=== PATIENT | male | born 1955 ===

== ENCOUNTER 2024-12-11 14:41 | Outpatient (REF) | payer MEDICARE, SELFPAY ==
--- OUTSIDE RECORDS SUMMARY | 2024-11-24 05:30 | XMS_ITS ---
Author Organization [facility] Address [address] [place] [address] [address] [place] [address] Care Team Providers Care Paper Handler Name Role Phone KOBE DOELL Unavailable [phone] REASON FOR VISIT CHAYO, Respiratory failure Encounters Encounter Location Date Provider Diagnosis [address] [place], [place] [id number] 11/24/2024 KOBEEvon ODELL Obstructive sleep ap melba (adult) (pediatric) G47.33 and Respiratory failure, unspecified, unspecified whether with hypoxia or hypercapnia J96.90 Assessments Encounter Date Diagnosis (ICD Code) Assessment Notes Treatment Notes Treatment Clinical Notes Section Notes 11/24/2024 Obstructive sleep apnea (adult) (pediatric) (ICD-10 - G47.33) 11/24/2024 Respiratory failure, unspecified, unspecified whether with hypoxia or hypercapnia (ICD-10 - J96.90) Plan Of Treatment Next Appt Details Follow Up: 1 Week, Reason: Progress Notes * Frankie THORNTONDOB:1955 (69 yo M)Acc No.[id number]:11/24/2024 Progress Notes Patient: Frankie MELGOZA Provider: Kale Odell MD :1955 A ge:69 Y S ex:Male Date:11/24/2024 Phone: Address:[facility] [address], [place], [id number] Subjective: * Chief Complaints: * 1 . CHAYO. 2. Respiratory failure. * HPI: C onstitutional: Continuing to see the patient for pulmonary management. Discussed residents pulmonary status with the respiratory therapist. Reviewed current assessment and orders. Will continue current orders as written at this time. Impression: CHAYO Respiratory failure Plan: 2L NC during the day to maintain SpO2 >90% CPAP HS: settings of 17 cmH2O at HS and with naps, bought own machine online, private pay, will continue No nebulizers or inhalers Full code Will continue to monitor pulmonary status. * ROS: A ll Other Systems: Review of Systems (ROS) A ll others negative except those mentioned in HPI,See HPI for details. * Medical History: Objective: * Vitals: * Examination: G eneral Examination: GENERAL APPEARANCE: i n no acute distress, well developed, well nourished. ORAL CAVITY: m ucosa moist. THROAT: n ormal. NECK/THYROID: n jay supple, full range of motion, no cervical lymphadenopathy. SKIN: n o suspicious lesions, warm and dry. HEART: n o murmurs, regular rate and rhythm, S1, S2 normal.? LUNGS: c lear to auscultation bilaterally. EXTREMITIES: n o clubbing, cyanosis, or edema. ? Assessment: * Assessment: 1. O bstructive sleep apnea (adult) (pediatric) - G47.33 (Primary) 2 . R espiratory failure, unspecified, unspecified whether with hypoxia or hypercapnia - J96.90 ? Plan: * Treatment: * Follow Up: 1 Week * * Electronic signature of KOBE ODELL MD on 12/11/2024 at 02:56 PM EDT Sign off status: Pending * Provider: Kale Odell MD Date: 11/24/2024 Generated for Cesar longoria/Richard/Kalensmitting on: 0 12/11/2024 02:56 PM EDT History and Physical Notes * HPI (History of Present Illness) Category Sub-Category Detail Notes Category Not es Constitutional Continuing to see the patient for pulmonary management. Discussed residents pulmonary status with the respiratory therapist. Reviewed current assessment and orders. Will continue current orders as written at this time. Impression: CHAYO Respiratory failure Plan: 2L NC during the day to maintain SpO2 >90% CPAP HS: settings of 17 cmH2O at HS and with naps, bought own machine online, private pay, will continue No nebulizers or inhalers Full code Will continue to monitor pulmonary status Examination Category Sub-Category Detail Notes Category Not es General Examination GENERAL APPEARANCE: in no ac reema distress, well developed, well nourished THROAT: normal NECK/THYROID: neck supple, full ra nge of motion, no cervical lymphadenopathy HEART: no murmurs, regular rate and rhythm, S1, S2 normal LUNGS: clear to auscultatio n bilaterally SKIN: no suspicious lesion s, warm and dry EXTREMITIES: no clubbing, cyanosi s, or edema ORAL CAVITY: mucosa moist
--- OUTSIDE RECORDS SUMMARY | 2024-12-08 05:30 | XMS_ITS ---
Author Organization [facility] Address [address] [place] [address] [address] [place] [address] Care Team Providers Care Banking Supervisor Name Role Phone KOBE ODELL Unavailable [phone] REASON FOR VISIT CHAYO, Respiratory failure Encounters Encounter Location Date Provider Diagnosis [address] [place], [place] [phone] 12/08/2024 KOBE JOSE R Obstructive sleep ap melba (adult) (pediatric) G47.33 and Respiratory failure, unspecified, unspecified whether with hypoxia or hypercapnia J96.90 Assessments Encounter Date Diagnosis (ICD Code) Assessment Notes Treatment Notes Treatment Clinical Notes Section Notes 12/08/2024 Obstructive sleep apnea (adult) (pediatric) (ICD-10 - G47.33) 12/08/2024 Respiratory failure, unspecified, unspecified whether with hypoxia or hypercapnia (ICD-10 - J96.90) Plan Of Treatment Next Appt Details Follow Up: 1 Week, Reason: Progress Notes * Frankie THORNTONDOB:1955 (69 yo M)Acc No.[id number]:12/08/2024 Progress Notes Patient: Frankie MELGOZA Provider: Kale Odell MD :1955 A ge:69 Y S ex:Male Date:12/08/2024 Phone: Address:[facility] [address], [place], [id number] Subjective: * Chief Complaints: * O SARespiratory failure * HPI: C onstitutional: Continuing to see the patient for pulmonary management. Evaluated patient at bedside with RT. Stable pulmonary status. No changes in physical examination. Discussed pulmonary status with nursing and RT. Continue current orders. Impression: CHAYO Respiratory failure Plan: 2L NC [...] HPI,See HPI for details. * Medical History: * Surgical History: * Hospitalization/Major Diagno stic Procedure: * Medications: Objective: * Vitals: * Examination: G eneral [...] - J96.90 ? Plan: * Treatment: * Procedure Codes: * Follow Up: 1 Week * * Sign off status: Completed true * Provider: Kale Odell MD Date: 12/08/2024 Generated for Ellioterento von/Richard/eTransmitting on: 0 12/11/2024 02:56 PM EDT History and Physical Notes * HPI (History of Present Illness) Category Sub-Category Detail Notes Category Not es Constitutional Continuing to see the patient for pulmonary management. Evaluated patient at bedside with RT. Stable pulmonary status. No changes in physical examination. Discussed pulmonary status with nursing and RT. Continue current orders. Impression: CHAYO Respiratory failure Plan: 2L NC during the day to maintain SpO2 >90% CPAP HS: settings of 17 cmH2O at HS and with naps, bought own machine online, private pay, will continue No nebulizers or inhalers Full code Will continue to monitor pulmonary status Examination Category Sub-Category Detail Notes Category Not es General Examination GENERAL APPEARANCE: in no ac jackson distress, well developed, well nourished THROAT: normal NECK/THYROID: neck supple, full ra nge of motion, no cervical lymphadenopathy HEART: no murmurs, regular rate and rhythm, S1, S2 normal LUNGS: clear to auscultatio n bilaterally SKIN: no suspicious lesion s, warm and dry EXTREMITIES: no clubbing, cyanosi s, or edema ORAL CAVITY: mucosa moist
--- OUTSIDE RECORDS SUMMARY | 2024-12-11 10:15 | XMS_ITS ---
Author Organization [facility] [place] Address [address] [place] [address] Care Team Providers Care Ocular Care Technician Name Role Phone Bouts Ousmane UGARTE Primary Care Provider Rui Christina Unavailable [phone] Encounters Encounter Location Date Provider Diagnosis [facility] [address] [place] [address] 12/11/2024 Rui Paniagua Plan Of Treatment No Information Progress Notes * Frankie THORNTON HDOB:[birth year] (69 yo M)Acc No.[id number]:12/11/2024 Patient: Frankie MELGOZA :1955 A ge:69 Y S ex:Male Address:[address], [address], [place], [address] * true * Date: Generated for Ellioti von/Faloretag/eTransmitting on: 0 12/11/2024 02:56 PM EDT
--- OUTSIDE RECORDS SUMMARY | 2024-12-11 14:56 | XMS_ITS | Encounter Summary ---
Author Organization [facility] Address [address] [facility] [place] [address] Care Team Providers Care Sql Manager Name Role Phone Unavailable Primary Care Provider Unavailabl e Encounter Details Date Type Department Care Team (Late st Contact Info) Description 12/02/2024 Telephone [facility] [address] [place] [id number] Puja Lacey, MEDICAL POLICY SPECIALIST [address] [place] [address] Social History Tobacco Use Types Packs/Day Years Used Date Smoking Tobacco: Never Assessed Sex and Gender Information Value Date Recorded Sex Assigned at Not on file Legal Sex Male 10:25 AM EDT Gender Identity Not on file Sexual Orientation Not on file documented as of this encounter Miscellaneous Notes * Telephone Encounter - Puja Lacey NP - 12/02/2024 10:55 PM EDT Requested Prescriptions Signed Prescriptions Disp Refills oxyCODONE (Roxicodone) 5 MG immediate release tablet 60 tablet 0 Sig: Take 1 tablet (5 mg) by mouth every 12 (twelve) hours Authorizing Provider: PUJA LACEY documented in this encounter Plan of Treatment Not on file documented as of this encounter Visit Diagnoses Diagnosis Pain- Primary Generalized pain documented in this encounter
--- OUTSIDE RECORDS SUMMARY | 2024-12-11 14:56 | XMS_ITS | Patient Health Record ---
Author Organization [facility] [place] Address [address] [place] [address] Care Team Providers Care Food Safety Officer Name Role Phone Bouts Ousmane UGARTE Primary Care Provider Rui Christina Unavailable [phone] Results Component Value Reference Range Notes IR Tunneled Dialysis Cathete r Insert Reviewed date:11/06/2024 01:40:36 PM Interpretation: Performing Lab: Notes/Report: Patient Name: Frankie Thornton CLINICAL HISTORY: Needs long-term dialysis access. Ig Free Light Chains-Given Reviewed date:11/11/2024 01:50:49 PM Interpretation: Performing Lab: Notes/Report: [facility] [address] [place], [place] [address] Belk FLC-Given 11.8 0.3300-1.94 mg/dL Lambda FLC-Given 8.74 0.5700-2.63 mg/dL Flakita/Mohan Ratio-Given 1.35 0.2600-1.65 Test Performed by: [facility] [address] [place] [address] Console Operator: Angela Higginbotham Ph.D.; CLIA# [id number] MAGNESIUM Reviewed date:11/11/2024 04:25:31 PM Interpretation: Performing Lab: Notes/Report: [facility] [address] [place] [address] Magnesium Lvl 2.0 1.7-2.4 mg/dL PHOSPHORUS Reviewed date:11/11/2024 04:25:12 PM Interpretation: Performing Lab: Notes/Report: [facility] [address] [place] [address] Phosphorus 3.5 2.5-4.6 mg/dL UPCR Reviewed date:11/11/2024 04:19:58 PM Interpretation: Performing Lab: Notes/Report: [address] [address] Urine Protein/Creatinine Ratio 2.08 <=0.20 Ur Creatinine 78.50 The reference range has not been established for this test on a random urine sample. The test result should be interpreted based on clinical context. Ur Protein 163 <=10 mg/dL Uric Acid Reviewed date:11/11/2024 04:25:26 PM Interpretation: Performing Lab: Notes/Report: [address] [address] Uric Acid 4.8 4.0-7.6 mg/dL PTH-INT Reviewed date:11/11/2024 04:25:22 PM Interpretation: Performing Lab: Notes/Report: [address] [address] PTH Intact 98.2 12.0-88.0 pg/mL Vitamin D 25-Hydroxy Total Reviewed date:11/11/2024 04:25:16 PM Interpretation: Performing Lab: Notes/Report: [address] [address] Vitamin D 25-Hydroxy Total 37 30-100 ng/mL Vitamin D 25-Hydroxy Total Reference Range: Deficient: < 20 ng/mL Insufficient: 20 - 29 ng/mL Sufficient: 30 - 100 ng/mL Upper Safety Limit: > 100 ng/mL TIBC Reviewed date:11/11/2024 04:25:07 PM Interpretation: Performing Lab: Notes/Report: [address] [address] Iron Sat 16.2 >=16.0 % TIBC 185 261-478 mcg/dL Transferrin 132.0 203.0-362.0 mg/dL Iron 30 50-212 mcg/dL B12/Folate Lvl Reviewed date:11/11/2024 04:22:38 PM Interpretation: Performing Lab: Notes/Report: [address] [address] Folate Lvl 21.5 >=5.9 ng/mL A WHO Technical Consultation has determined that deficient Folate concentrations are considered to be less than 4 ng/mL. Vitamin B12 Lvl 797 180-914 pg/mL MAGNESIUM Reviewed date:11/12/2024 11:22:02 AM Interpretation: Performing Lab: Notes/Report: [address] [address] Magnesium Lvl 2.0 1.7-2.4 mg/dL .eGFR Reviewed date:11/12/2024 08:04:42 AM Interpretation: Performing Lab: Notes/Report: Order added by Discern rule [address] [address] Estimated GFR 19 >=60 mL/min/1.73m? [facility] have implemented the eGFR calculation approach that does not have a coefficient for race and that conforms to the NKF-ASN Task Force Recommendations. Stages of Chronic Kidney Disease GFR Stage 1 Normal to mild loss of kidney function ? 90 Stage 2 Mild loss of kidney function 60 - 89 Stage 3a Mild to moderate loss of kidney function 45 - 59 Stage 3b Moderate to severe loss of kidney function 30 - 45 Stage 4 Severe loss of kidney function 15 - 29 Stage 5 Kidney failure < 15 GFR calculated using the CKD-Epi Creatinine Equation (2020): eGFR = 142 X min(SCr/?, 1)? X max(SCr /?, 1)-1.200 X 0.9938Age X 1.012 [if female] Abbreviations/Units: eGFR (estimated glomerular filtration rate) = mL/min/1.73 m2 SCr (standardized serum creatinine) = mg/dL ? = 0.7 (females) or 0.9 (males) ? = -0.241 (females) or -0.302 (males) min = indicates the minimum of SCr/? or 1 max = indicates the maximum of SCr/? or 1 Age = years ALT Reviewed date:11/12/2024 11:22:08 AM Interpretation: Performing Lab: Notes/Report: [address] [address] ALT 5 7-52 IU/L AST Reviewed date:2024 11:22:05 AM Interpretation: Performing Lab: Notes/Report: [address] [address] AST 28 13-39 IU/L Total Protein Reviewed date:11/12/2024 11:21:59 AM Interpretation: Performing Lab: Notes/Report: [address] [address] Total Protein 6.4 6.0-8.3 g/dL Alk Phos Reviewed date:11/12/2024 11:21:57 AM Interpretation: Performing Lab: Notes/Report: [address] [address] Alk Phos 131 34-104 IU/L Renal Panel Reviewed date:11/12/2024 11:21:53 AM Interpretation: Performing Lab: Notes/Report: [address] [address] Sodium Lvl 133 136-145 mmol/L Potassium Lvl 3.7 3.4-4.8 mmol/L Chloride 100 98-107 mmol/L CO2 25 21-31 mmol/L Anion Gap 8 4-12 mmol/L Glucose Lvl 133 70-99 mg/dL BUN 31 7-25 mg/dL Creatinine Lvl 3.30 0.70-1.30 mg/dL BUN Crea Ratio 9.4 15.0-25.0 ratio Albumin Lvl 2.9 4.2-5.5 g/dL Calcium Lvl 9.1 8.6-10.3 mg/dL Phosphorus 2.9 2.5-4.6 mg/dL Full Bilirubin Reviewed date:11/12/2024 11:21:55 AM Interpretation: Performing Lab: Notes/Report: [address] [address] Bili Total 0.9 0.3-1.0 mg/dL Bili Direct 0.20 0.03-0.18 mg/dL Bili Indirect 0.7 0.0-1.0 mg/dL MAGNESIUM Reviewed date:11/13/2024 08:01:34 AM Interpretation: Performing Lab: Notes/Report: [address] [address] Magnesium Lvl 1.9 1.7-2.4 mg/dL PHOSPHORUS Reviewed date:11/13/2024 08:01:31 AM Interpretation: Performing Lab: Notes/Report: [address] [address] Phosphorus 3.2 2.5-4.6 mg/dL MAGNESIUM Reviewed date:11/14/2024 08:04:38 AM Interpretation: Performing Lab: Notes/Report: [address] [place] [address] Magnesium Lvl 1.9 1.7-2.4 mg/dL PHOSPHORUS Reviewed date:11/14/2024 08:04:30 AM Interpretation: Performing Lab: Notes/Report: [address] [address] Phosphorus 2.6 2.5-4.6 mg/dL CBC Reviewed date:11/15/2024 08:17:15 AM Interpretation: Performing Lab: Notes/Report: [address] [address] WBC 7.0 4.5-11.0 x10*3/mcL RBC 3.12 4.30-5.80 x10*6/mcL Hgb 9.7 13.5-17.5 g/dL Hct 29.0 41.0-53.0 % MCV 92.9 80.0-100.0 fL MCH 31.1 27.0-35.0 pg MCHC 33.5 31.0-37.0 % Platelet 253 150-450 x10*3/mcL RDW 21.2 11.6-14.8 % Mean Platelet Volume 7.9 6.7-10.6 fL Diff Auto Reviewed date:11/18/2024 09:25:42 AM Interpretation: Performing Lab: Notes/Report: [address] [address] Neutro Auto 71.8 47.2-70.8 % Lymph Auto 13.4 27.2-40.8 % Bay Auto 10.2 4.7-13.9 % Eos Auto 2.5 0.0-6.1 % Basophil Auto 2.1 0.0-1.2 % Neutro Absolute 5.2 1.8-7.7 x10*3/mcL Lymph Absolute 1.0 1.0-4.8 x10*3/mcL Bay Absolute 0.7 0.3-1.1 x10*3/mcL Eos Absolute 0.2 0.0-0.4 x10*3/mcL Baso Absolute 0.2 0.0-0.2 x10*3/mcL CMP Reviewed date:11/18/2024 09:25:35 AM Interpretation: Performing Lab: Notes/Report: [address] [address] Sodium Lvl 133 136-145 mmol/L Potassium Lvl 3.7 3.4-4.8 mmol/L Chloride 101 98-107 mmol/L CO2 26 21-31 mmol/L Anion Gap 6 4-12 mmol/L Glucose Lvl 141 70-99 mg/dL BUN 27 7-25 mg/dL Creatinine Lvl 2.66 0.70-1.30 mg/dL BUN Crea Ratio 10.2 15.0-25.0 ratio Bili Total 0.8 0.3-1.0 mg/dL Alk Phos 133 34-104 IU/L AST 16 13-39 IU/L ALT 6 7-52 IU/L Total Protein 6.6 6.0-8.3 g/dL Albumin Lvl 3.4 4.2-5.5 g/dL AG Ratio 1.1 1.1-2.2 Calcium Lvl 9.5 8.6-10.3 mg/dL .eGFR Reviewed date:11/18/2024 09:25:23 AM Interpretation: Performing Lab: Notes/Report: [facility] [address] [place] [address] Estimated GFR 25 >=60 mL/min/1.73m? [facility] have implemented the eGFR calculation approach that does not have a coefficient for race and that conforms to the NKF-ASN Task Force Recommendations. Stages of Chronic Kidney Disease GFR Stage 1 Normal to mild loss of kidney function ? 90 Stage 2 Mild loss of kidney function 60 - 89 Stage 3a Mild to moderate loss of kidney function 45 - 59 Stage 3b Moderate to severe loss of kidney function 30 - 45 Stage 4 Severe loss of kidney function 15 - 29 Stage 5 Kidney failure < 15 GFR calculated using the CKD-Epi Creatinine Equation (2020): eGFR = 142 X min(SCr/?, 1)? X max(SCr /?, 1)-1.200 X 0.9938Age X 1.012 [if female] Abbreviations/Units: eGFR (estimated glomerular filtration rate) = mL/min/1.73 m2 SCr (standardized serum creatinine) = mg/dL ? = 0.7 (females) or 0.9 (males) ? = -0.241 (females) or -0.302 (males) min = indicates the minimum of SCr/? or 1 max = indicates the maximum of SCr/? or 1 Age = years PHOSPHORUS Reviewed date:11/18/2024 09:25:26 AM Interpretation: Performing Lab: Notes/Report: [address] [address] Phosphorus 2.4 2.5-4.6 mg/dL MAGNESIUM Reviewed date:11/18/2024 09:25:31 AM Interpretation: Performing Lab: Notes/Report: [address] [address] Magnesium Lvl 2.0 1.7-2.4 mg/dL CBC NO DIFF Reviewed date:11/18/2024 09:25:39 AM Interpretation: Performing Lab: Notes/Report: [address] [address] WBC 7.2 4.5-11.0 x10*3/mcL RBC 3.08 4.30-5.80 x10*6/mcL Hgb 9.5 13.5-17.5 g/dL Hct 28.8 41.0-53.0 % MCV 93.4 80.0-100.0 fL MCH 30.9 27.0-35.0 pg MCHC 33.1 31.0-37.0 % Platelet 254 150-450 x10*3/mcL RDW 21.3 11.6-14.8 % Mean Platelet Volume 7.9 6.7-10.6 fL CMP Reviewed date:11/15/2024 08:17:11 AM Interpretation: Performing Lab: Notes/Report: [address] [address] Sodium Lvl 133 136-145 mmol/L Potassium Lvl 3.9 3.4-4.8 mmol/L Chloride 101 98-107 mmol/L CO2 25 21-31 mmol/L Anion Gap 7 4-12 mmol/L Glucose Lvl 128 70-99 mg/dL BUN 36 7-25 mg/dL Creatinine Lvl 3.24 0.70-1.30 mg/dL BUN Crea Ratio 11.1 15.0-25.0 ratio Bili Total 0.8 0.3-1.0 mg/dL Alk Phos 135 34-104 IU/L AST 20 13-39 IU/L ALT 6 7-52 IU/L Total Protein 6.2 6.0-8.3 g/dL Albumin Lvl 2.9 4.2-5.5 g/dL AG Ratio 0.9 1.1-2.2 Calcium Lvl 9.5 8.6-10.3 mg/dL .eGFR Reviewed date:11/15/2024 08:16:59 AM Interpretation: Performing Lab: Notes/Report: [address] [address] Estimated GFR 20 >=60 mL/min/1.73m? [facility] have implemented the eGFR calculation approach that does not have a coefficient for race and that conforms to the NKF-ASN Task Force Recommendations. Stages of Chronic Kidney Disease GFR Stage 1 Normal to mild loss of kidney function ? 90 Stage 2 Mild loss of kidney function 60 - 89 Stage 3a Mild to moderate loss of kidney function 45 - 59 Stage 3b Moderate to severe loss of kidney function 30 - 45 Stage 4 Severe loss of kidney function 15 - 29 Stage 5 Kidney failure < 15 GFR calculated using the CKD-Epi Creatinine Equation (2020): eGFR = 142 X min(SCr/?, 1)? X max(SCr /?, 1)-1.200 X 0.9938Age X 1.012 [if female] Abbreviations/Units: eGFR (estimated glomerular filtration rate) = mL/min/1.73 m2 SCr (standardized serum creatinine) = mg/dL ? = 0.7 (females) or 0.9 (males) ? = -0.241 (females) or -0.302 (males) min = indicates the minimum of SCr/? or 1 max = indicates the maximum of SCr/? or 1 Age = years PHOSPHORUS Reviewed date:11/15/2024 08:17:02 AM Interpretation: Performing Lab: Notes/Report: [address] [address] Phosphorus 3.1 2.5-4.6 mg/dL MAGNESIUM Reviewed date:11/15/2024 08:17:06 AM Interpretation: Performing Lab: Notes/Report: [address] [address] Magnesium Lvl 2.0 1.7-2.4 mg/dL UPEP Reviewed date:11/06/2024 01:42:05 PM Interpretation: Performing Lab: Notes/Report: [address] [address] Ur Protein 233 <=10 mg/dL Urine SPE Albumin % 56.1 Urine SPE Globulin % 43.9 Urine SPE Pathologist Interpretation Urine protein electrophoresis shows: Albuminuria and some other proteins, including one protein restriction that is suggestive for monoclonal protein.. Authenticated by: Radha Syed M.D. Date/Time:11/05/2024 16:24:24 EDT Diff Auto Reviewed date:11/18/2024 09:24:33 AM Interpretation: Performing Lab: Notes/Report: [address] [address] Neutro Auto 72.4 47.2-70.8 % Lymph Auto 13.2 27.2-40.8 % Bay Auto 10.4 4.7-13.9 % Eos Auto 2.9 0.0-6.1 % Basophil Auto 1.1 0.0-1.2 % Neutro Absolute 5.3 1.8-7.7 x10*3/mcL Lymph Absolute 1.0 1.0-4.8 x10*3/mcL Bay Absolute 0.8 0.3-1.1 x10*3/mcL Eos Absolute 0.2 0.0-0.4 x10*3/mcL Baso Absolute 0.1 0.0-0.2 x10*3/mcL CBC NO DIFF Reviewed date:11/18/2024 09:24:29 AM Interpretation: Performing Lab: Notes/Report: [address] [address] WBC 7.3 4.5-11.0 x10*3/mcL RBC 3.11 4.30-5.80 x10*6/mcL Hgb 9.7 13.5-17.5 g/dL Hct 29.0 41.0-53.0 % MCV 93.2 80.0-100.0 fL MCH 31.2 27.0-35.0 pg MCHC 33.5 31.0-37.0 % Platelet 253 150-450 x10*3/mcL RDW 21.2 11.6-14.8 % Mean Platelet Volume 8.1 6.7-10.6 fL Renal Panel Reviewed date:11/18/2024 09:24:22 AM Interpretation: Performing Lab: Notes/Report: [address] [address] Sodium Lvl 133 136-145 mmol/L Potassium Lvl 4.2 3.4-4.8 mmol/L Chloride 100 98-107 mmol/L CO2 26 21-31 mmol/L Anion Gap 7 4-12 mmol/L Glucose Lvl 118 70-99 mg/dL BUN 34 7-25 mg/dL Creatinine Lvl 3.34 0.70-1.30 mg/dL BUN Crea Ratio 10.2 15.0-25.0 ratio Albumin Lvl 3.1 4.2-5.5 g/dL Calcium Lvl 9.7 8.6-10.3 mg/dL Phosphorus 3.6 2.5-4.6 mg/dL .eGFR Reviewed date:11/18/2024 09:24:19 AM Interpretation: Performing Lab: Notes/Report: [address] [address] Estimated GFR 19 >=60 mL/min/1.73m? [facility] have implemented the eGFR calculation approach that does not have a coefficient for race and that conforms to the NKF-ASN Task Force Recommendations. Stages of Chronic Kidney Disease GFR Stage 1 Normal to mild loss of kidney function ? 90 Stage 2 Mild loss of kidney function 60 - 89 Stage 3a Mild to moderate loss of kidney function 45 - 59 Stage 3b Moderate to severe loss of kidney function 30 - 45 Stage 4 Severe loss of kidney function 15 - 29 Stage 5 Kidney failure < 15 GFR calculated using the CKD-Epi Creatinine Equation (2020): eGFR = 142 X min(SCr/?, 1)? X max(SCr /?, 1)-1.200 X 0.9938Age X 1.012 [if female] Abbreviations/Units: eGFR (estimated glomerular filtration rate) = mL/min/1.73 m2 SCr (standardized serum creatinine) = mg/dL ? = 0.7 (females) or 0.9 (males) ? = -0.241 (females) or -0.302 (males) min = indicates the minimum of SCr/? or 1 max = indicates the maximum of SCr/? or 1 Age = years MAGNESIUM Reviewed date:11/18/2024 09:24:25 AM Interpretation: Performing Lab: Notes/Report: [address] [address] Magnesium Lvl 2.0 1.7-2.4 mg/dL Reason For Referral No Information Problems Problem Type SNOMED Code ICD Code Onset Dates Problem Status W/U Status Risk Notes Problem Hepatorenal syndrome (70896215) Hepatorenal syndrome (K76.7) Active confirmed Problem single functional kidney (finding) (044987837) Solitary kidney (Q60.0) Active confirmed Problem ACC/AHA stage C systolic heart failure (I50.20) Active confirmed Encounters Encounter Location Date Provider Diagnosis [facility] [address] [place] [address] 12/11/2024 Rui Paniagua Plan Of Treatment No Information Insurance Providers Payer Name Payer Address Payer Phone Subscriber Number Group Number Insured Name Patient Relationship to Insured Coverage Start Date Coverage End Date [employer] MEDICARE ADVANTAGE [address] [address] [place] [address] [id number] Frankie Thornton Self - patient is the insured 5
--- OUTSIDE RECORDS SUMMARY | 2024-12-11 14:56 | XMS_ITS | Patient Health Record ---
Author Organization [facility] Address [address] [facility] [address] [place] [address] Care Team Providers Care Court Of Appeals Judge Name Role Phone KOBE ODELL Unavailable [phone] PRINCE MARINA Unavailable [phone] GATO GURMEET Unavailable [phone] Reason For Referral No Information Problems Problem Type SNOMED Code ICD Code Onset Dates Problem Status W/U Status Risk Notes Problem Obstructive sleep apnea syndrome (disorder) (66057530) Obstructive sleep apnea (adult) (pediatric) (G47.33) Active confirmed Encounters Encounter Location Date Provider Diagnosis [place] [address] [id number] 11/24/2024 KOBE ODELL Obstructive sleep ap melba (adult) (pediatric) G47.33 and Respiratory failure, unspecified, unspecified whether with hypoxia or hypercapnia J96.90 [place] [address] [phone] 11/19/2024 PRINCE MARINA Obstructive sleep ap melba (adult) (pediatric) G47.33 and Respiratory failure, unspecified, unspecified whether with hypoxia or hypercapnia J96.90 [place] [address] [id number] 11/21/2024 KELCEE MARINA Obstructive sleep ap melba (adult) (pediatric) G47.33 and Respiratory failure, unspecified, unspecified whether with hypoxia or hypercapnia J96.90 [place] [address] [id number] 11/26/2024 GURMEET GATO Obstructive sleep ap melba (adult) (pediatric) G47.33 and Respiratory failure, unspecified, unspecified whether with hypoxia or hypercapnia J96.90 [place] [address] [id number] 12/08/2024 KOBE ODELL Obstructive sleep ap melba (adult) (pediatric) G47.33 and Respiratory failure, unspecified, unspecified whether with hypoxia or hypercapnia J96.90 Assessments Encounter Date Diagnosis (ICD Code) Assessment Notes Treatment Notes Treatment Clinical Notes Section Notes 11/19/2024 Obstructive sleep apnea (adult) (pediatric) (ICD-10 - G47.33) 11/19/2024 Respiratory failure, unspecified, unspecified whether with hypoxia or hypercapnia (ICD-10 - J96.90) 11/21/2024 Obstructive sleep apnea (adult) (pediatric) (ICD-10 - G47.33) 11/24/2024 Obstructive sleep apnea (adult) (pediatric) (ICD-10 - G47.33) 11/26/2024 Obstructive sleep apnea (adult) (pediatric) (ICD-10 - G47.33) 12/08/2024 Obstructive sleep apnea (adult) (pediatric) (ICD-10 - G47.33) 12/08/2024 Respiratory failure, unspecified, unspecified whether with hypoxia or hypercapnia (ICD-10 - J96.90) 11/26/2024 Respiratory failure, unspecified, unspecified whether with hypoxia or hypercapnia (ICD-10 - J96.90) 11/24/2024 Respiratory failure, unspecified, unspecified whether with hypoxia or hypercapnia (ICD-10 - J96.90) 11/21/2024 Respiratory failure, unspecified, unspecified whether with hypoxia or hypercapnia (ICD-10 - J96.90) 11/21/2024 Other Seen in collaboration and discussed plan of care with Dr. Kobe Odell 11/26/2024 Other Seen in collaboration and discussed plan of care with Dr. Kobe Odell Plan Of Treatment No Information Insurance Providers Payer Name Payer Address Payer Phone Subscriber Number Group Number Insured Name Patient Relationship to Insured Coverage Start Date Coverage End Date [facility] Medicare Advantage [address] [address] [place] [address] [id number] Frankie Thornton Self - patient is the insured
--- OUTSIDE RECORDS SUMMARY | 2024-12-11 14:56 | XMS_ITS | Clinical Summary ---
Author Organization [facility] Address [address] [place] [address] Care Team Providers Care Historic Site Administrator Name Role Phone Unavailable Primary Care Provider Unavailabl e Medications oxyCODONE (Roxicodone) 5 MG immediate release tabletIndication s:Pain Take 1 tablet (5 mg) by mouth every 12 (twelve) hours 60 tablet 12/02/2024 5 Active Encounters Date Type Department Care Team Description 12/02/2024 Telephone [facility] [address] [facility] [address] [place] [address] Puja Lacey, ROSEMARY 11/26/2024 Abstract [facility] [address] [place] [id number] Unallocated, [facility] MD Sarai from Last 3 Months Social History Tobacco Use Types Packs/Day Years Used Date Smoking Tobacco: Never Assessed Sex and Gender Information Value Date Recorded Sex Assigned at Not on file Legal Sex Male 10:25 AM EDT Gender Identity Not on file Sexual Orientation Not on file Plan of Treatment Not on file Insurance [facility] [place] [address]
[2024-12-11 15:14] LABS: Hematocrit 26.1 % (42.0-54.0); Hemoglobin 8.3 g/dL (14.0-18.0); Immature Granulocytes Abs Auto 0.07 10^3/uL (0.00-0.03); Immature Granulocytes Pct Auto 0.8 % (0.0-0.5); Lymphocytes Absolute Auto 0.7 10^3/uL (1.2-3.8); Mean Corpuscular HGB Conc 31.8 g/dL (29.9-35.2); Mean Corpuscular Hemoglobin 30.3 pg (25.9-34.0); Mean Corpuscular Volume 95.3 fL (80.0-94.0); Platelet Count 177 10^3/uL (150-450); Red Blood Count 2.74 10^6/uL (4.70-6.10); White Blood Count 8.2 10^3/uL (4.0-11.0)
[2024-12-11 15:21] LABS: Glucose Urine UA NEGATIVE (NEGATIVE)
[2024-12-11 15:27] LABS: Anion Gap 7.4; Blood Urea Nitrogen 26.0 mg/dL (7.0-18.0); Calcium 8.8 mg/dL (8.5-10.1); Carbon Dioxide 30.7 mmol/L (21.0-32.0); Chloride 93 mmol/L (98-107); Estimated GFR (African America 43 (>=60 mL/min/1.73m^2); Estimated GFR (Non-African Ame 35 (>=60 mL/min/1.73m^2); Glucose 188 mg/dL (74-106); Potassium 3.1 mmol/L (3.5-5.1); Sodium 128 mmol/L (136-145)
[2024-12-11 16:13] LABS: Crystals Seen? Seen #/HPF (None Seen)
[2024-12-11 16:14] LABS: Cast Seen? NONE SEEN #/LPF (NONE SEEN)
[2024-12-11 16:16] LABS: Urine Culture Indicated YES-FRMC
== END 2024-12-11 14:42 | disposition home or self-care (01) ==
LOC: LAB 14:41
PROVIDERS: PCP Internal Medicine; Visit Provider Nurse Practitioner Family
DX: N17.9 Acute kidney failure, unspecified (principal); R41.82 Altered mental status, unspecified
CPT/HCPCS: 36415; 80048; 81001; 85025; 87086